=== PATIENT | female | born 1970 | race Caucasian/White ===

== ENCOUNTER 2018-12-02 05:28 | Day surgery (SDC) | payer BC, OTHER ==
[2018-11-29 11:26] LABS: BASOPHILS # (AUTO) 0.08 x10^3/uL (0-0.1); BASOPHILS % (AUTO) 1 % (0-1); EOSINOPHILS # (AUTO) 0.44 x10^3/uL (0-0.4); EOSINOPHILS % (AUTO) 7 % (1-7); LYMPHOCYTES # (AUTO) 2.07 x10^3/uL (1-3.4); LYMPHOCYTES % (AUTO) 31 % (22-44); MD NO; MEAN CORPUSCULAR HEMOGLOBIN 31.2 pg (27.0-34.8); MEAN CORPUSCULAR HGB CONC 33.9 g/dL (32.4-35.8); MEAN CORPUSCULAR VOLUME 91.9 fL (80-100); MEAN PLATELET VOLUME 7.4 fL (7.4-10.4); MONOCYTES # (AUTO) 0.64 x10^3/uL (0.2-0.8); MONOCYTES % (AUTO) 10 % (2-9); NEUTROPHILS # (AUTO) 3.43 x10^3/uL (1.8-6.8); NEUTROPHILS % (AUTO) 52 % (42-75); PLATELET COUNT 374 x10^3/uL (130-400); RED BLOOD COUNT 4.73 x10^6/uL (3.82-5.3); RED CELL DISTRIBUTION WIDTH 12.6 % (9.6-15.2)
[2018-11-29 11:31] LABS: ALBUMIN 3.5 g/dL (3.4-5.0); ANION GAP 6 mmol/L (5-15); CALCIUM 8.7 mg/dL (8.5-10.1); CHLORIDE 106 mmol/L (98-107); CREATININE 0.75 mg/dL (0.55-1.02)
[2018-11-29 11:47] LABS: INTERNATIONAL NORMALIZED RATIO 0.94 (0.93-1.1)
[2018-11-29 11:48] LABS: ALANINE AMINOTRANSFERASE 60 U/L (12-78); ALKALINE PHOSPHATASE 119 U/L (45-117); BILIRUBIN,TOTAL 0.4 mg/dL (0.2-1.0); TOTAL PROTEIN 8.1 g/dL (6.4-8.2)
[~2018-12-02] VITALS: Ht 162.6 cm; Wt 85.9 kg
[~2018-12-02 05:28] MED LIST: ASPI81TA45 PO; ATIVAN PO; HYDR25TA6 PO; OMEP-110 PO; PERCOCET PO
[2018-12-02 06:18] VITALS: BP 147/97
[2018-12-02] MEDS ORDERED: LACTATED RINGERS 1,000 ML IV SCH (06:18)
[2018-12-02] MEDS ORDERED: LORAZEPAM PO (06:18)
[2018-12-02] MEDS ORDERED: INDOCYANINE GREEN 25 MG VIAL ONE (07:03)
[2018-12-02] MEDS ORDERED: BUPIVACAINE/PF 0.25% ONE (07:03)
[2018-12-02] MEDS ORDERED: HEPARIN 5,000 UNITS/ML, 1ML ONE (07:03)
[2018-12-02] MEDS ORDERED: EPINEPHRINE 1 MG/ML, 1ML ONE (07:03)
[2018-12-02] MEDS ORDERED: FENTANYL PF 250 MCG/5ML ONE (07:05)
[2018-12-02] MEDS ORDERED: MIDAZOLAM 1 MG/ML, 2ML ONE (07:05)
[2018-12-02] MEDS ORDERED: OXYcodone 5 MG/5 ML ORAL.SOL UDC PO PRN (07:30)
[2018-12-02] MEDS ORDERED: ONDANSETRON 2MG/ML, 2ML IV PRN (07:30)
[2018-12-02] MEDS ORDERED: SCOPOLAMINE PATCH, 1.5MG PATCH.TD72 TD ONE (07:30)
[2018-12-02] MEDS ORDERED: DIAZEPAM 5 MG TABLET PO ONE (07:30)
[2018-12-02] MEDS ORDERED: hydrALAzine 20 MG/ML, 1ML IV PRN (07:30)
[2018-12-02] MEDS ORDERED: ONDANSETRON ODT 8 MG PO ONE (07:30)
[2018-12-02] MEDS ORDERED: MIDAZOLAM 1 MG/ML, 2ML IV PRN (07:30)
[2018-12-02] MEDS ORDERED: ALBUTEROL/IPRATROPIUM 2.5MG/0.5MG, 3 ML NPPB PRN (07:30)
[2018-12-02] MEDS ORDERED: GABAPENTIN 300 MG CAPSULE PO ONE (07:30)
[2018-12-02] MEDS ORDERED: FENTANYL PF 100 MCG/2ML IV PRN (07:30)
[2018-12-02] MEDS ORDERED: ACETAMINOPHEN 500 MG TABLET PO ONE (07:30)
[2018-12-02] MEDS ORDERED: HYDROmorphone 2 MG/ML, 1ML IVPush PRN (07:30)
[2018-12-02] MEDS ORDERED: KETOROLAC 30 MG/1 ML ONE (07:45)
[2018-12-02] MEDS ORDERED: LIDOCAINE 2% 100MG/5ML SYRINGE ONE (07:45)
[2018-12-02] MEDS ORDERED: PHENYLEPHRINE 10 MG/ML ONE (07:45)
[2018-12-02] MEDS ORDERED: CEFAZOLIN 1,000 MG ONE (09:34)
[2018-12-02] MEDS ORDERED: GLYCOPYRROLATE 0.2MG/1ML, 5ML ONE (09:34)
[2018-12-02] MEDS ORDERED: ONDANSETRON 2MG/ML, 2ML ONE (09:34)
[2018-12-02] MEDS ORDERED: NEOSTIGMINE 1 MG/ML, 10ML ONE (09:34)
[2018-12-02] MEDS ORDERED: ROCURONIUM 10MG/ML,5ML ONE (09:34)
[2018-12-02] MEDS ORDERED: DEXAMETHASONE 4 MG/ML, 1ML ONE (09:34)
[2018-12-02] MEDS ORDERED: PROPOFOL 10 MG/ML, 20ML ONE (09:34)
[2018-12-02] MEDS ORDERED: OXYcodone 5 MG/5 ML ORAL.SOL UDC ONE (10:56)
== END 2018-12-02 15:45 | disposition home or self-care (01) ==
LOC: OUT 05:28
PROVIDERS: ATTEND Specialist
DX: D27.1 Benign neoplasm of left ovary (principal); D28.2 Benign neoplasm of uterine tubes and ligaments; N85.8 Other specified noninflammatory disorders of uterus; I10 Essential (primary) hypertension; E78.00 Pure hypercholesterolemia, unspecified; K21.9 Gastro-esophageal reflux disease without esophagitis; F17.210 Nicotine dependence, cigarettes, uncomplicated; Z98.890 Other specified postprocedural states; Z90.710 Acquired absence of both cervix and uterus
CPT/HCPCS: 36415; 58661; 71046; 74018; 80053; 85025; 85610; 85730; 86304; 86850; 86900; 86923; 88305; 93005; J0171; J0690; J1100; J1885; J2250; J2370; J2704; J2710; J3010; J3490; J7120; Q0162; J1644; J2405

== ENCOUNTER 2018-12-09 23:45 | Emergency (ER) | payer OTHER ==
[~2018-12-09] VITALS: Ht 162.6 cm; Wt 88.8 kg
[~2018-12-09 23:45] MED LIST changes: +LORAZEPAM PO
--- NOTE | 2018-12-10 00:05 | NUR ---
FIRST CONTACT WITH PT. PT C/O BILATERAL LOWER ABD HEAVINESS/PAINFUL URINATION SINCE SUNDAY. PT HAD HYSTERECTOMY LAST SUNDAY. PT DENIES V/D AT THIS TIME. BP/SPO2 MONITORS IN PLACE. CALL LIGHT WITHIN REACH. PT'S AT BEDSIDE. EDMD AT BEDSIDE TO ASSESS AT THIS TIME.
--- NOTE | 2018-12-10 00:16 | NUR ---
PT AMB TO BR AND BACK TO ROOM WITH STEADY GAIT FOR UA.
[2018-12-10] MEDS ORDERED: MORPHINE SULFATE 4 MG/ML, 1ML ONE ×2 (00:29→01:24)
[2018-12-10] MEDS ORDERED: ONDANSETRON 2MG/ML, 2ML ONE (00:29)
[2018-12-10] MEDS ORDERED: ONDANSETRON 2MG/ML, 2ML IVPush ONE (00:30)
[2018-12-10 00:36] LABS: BASOPHILS # (AUTO) 0.07 x10^3/uL (0-0.1); BASOPHILS % (AUTO) 1 % (0-1); EOSINOPHILS # (AUTO) 0.53 x10^3/uL (0-0.4); EOSINOPHILS % (AUTO) 4 % (1-7); LYMPHOCYTES # (AUTO) 2.65 x10^3/uL (1-3.4); LYMPHOCYTES % (AUTO) 21 % (22-44); MD NO; MEAN CORPUSCULAR HEMOGLOBIN 31.1 pg (27.0-34.8); MEAN CORPUSCULAR HGB CONC 34.3 g/dL (32.4-35.8); MEAN CORPUSCULAR VOLUME 90.8 fL (80-100); MEAN PLATELET VOLUME 7.3 fL (7.4-10.4); MONOCYTES # (AUTO) 1.09 x10^3/uL (0.2-0.8); MONOCYTES % (AUTO) 8 % (2-9); NEUTROPHILS # (AUTO) 8.55 x10^3/uL (1.8-6.8); NEUTROPHILS % (AUTO) 66 % (42-75); PLATELET COUNT 380 x10^3/uL (130-400); RED BLOOD COUNT 4.33 x10^6/uL (3.82-5.3); RED CELL DISTRIBUTION WIDTH 12.3 % (9.6-15.2)
[2018-12-10 00:43] LABS: ANION GAP 5 mmol/L (5-15); CHLORIDE 109 mmol/L (98-107); CREATININE 0.69 mg/dL (0.55-1.02)
[2018-12-10 00:44] LABS: MICROSCOPIC NOT IND
[2018-12-10 00:48] LABS: CULTURE INDICATED? NO
[2018-12-10] MEDS: MORPHINE SULFATE 4 MG/ML, 1ML IVPush PRN ×2 (00:51→01:28)
--- NOTE | 2018-12-10 01:12 | NUR ---
pt's pain level is still 9/10 at this time. pt requesting pain med at this time.
--- NOTE | 2018-12-10 01:31 | NUR ---
pt medciated per emar for pain. pt tolerated well. pt's aox4. resps even and unlabored.
[2018-12-10 01:56] VITALS: BP 108/57
[2018-12-10] MEDS ORDERED: SULFAMETH./TRIMETHOPRIM DS 800MG/160MG TABLET PO ONE (02:00)
[2018-12-10] MEDS ORDERED: CEPHALEXIN 500 MG CAPSULE PO ONE (02:00)
[2018-12-10] MEDS ORDERED: SULFAMETH./TRIMETHOPRIM DS 800MG/160MG TABLET ONE (02:10)
[2018-12-10] MEDS ORDERED: CEPHALEXIN 500 MG CAPSULE ONE (02:10)
[2018-12-10] MEDS ORDERED: OMNIPAQUE 350 MG/ML, 100ML BOTTLE ONE (05:09)
== END 2018-12-10 02:37 | disposition home or self-care (01) ==
LOC: ED 23:59
DX: L03.311 Cellulitis of abdominal wall (principal); R10.32 Left lower quadrant pain; Z90.710 Acquired absence of both cervix and uterus
CPT/HCPCS: 36415; 74177; 80048; 81003; 82040; 85025; 96374; 96375; 96376; 99284; J2405; Q9967

== ENCOUNTER 2019-03-03 12:39 | Emergency (ER) | payer OTHER ==
[~2019-03-03] VITALS: Ht 162.6 cm; Wt 86.2 kg
[2019-03-03 13:31] LABS: BASOPHILS # (AUTO) 0.06 x10^3/uL (0-0.1); BASOPHILS % (AUTO) 1 % (0-1); EOSINOPHILS # (AUTO) 0.35 x10^3/uL (0-0.4); EOSINOPHILS % (AUTO) 4 % (1-7); LYMPHOCYTES # (AUTO) 2.48 x10^3/uL (1-3.4); LYMPHOCYTES % (AUTO) 29 % (22-44); MD NO; MEAN CORPUSCULAR HEMOGLOBIN 30.6 pg (27.0-34.8); MEAN CORPUSCULAR HGB CONC 33.8 g/dL (32.4-35.8); MEAN CORPUSCULAR VOLUME 90.6 fL (80-100); MEAN PLATELET VOLUME 8.1 fL (7.4-10.4); MONOCYTES # (AUTO) 0.87 x10^3/uL (0.2-0.8); MONOCYTES % (AUTO) 10 % (2-9); NEUTROPHILS # (AUTO) 4.83 x10^3/uL (1.8-6.8); NEUTROPHILS % (AUTO) 56 % (42-75); PLATELET COUNT 313 x10^3/uL (130-400); RED BLOOD COUNT 5.07 x10^6/uL (3.82-5.3); RED CELL DISTRIBUTION WIDTH 12.6 % (9.6-15.2)
[2019-03-03 13:41] LABS: ALANINE AMINOTRANSFERASE 77 U/L (12-78); ALBUMIN 3.5 g/dL (3.4-5.0); ANION GAP 8 mmol/L (5-15); CALCIUM 9.1 mg/dL (8.5-10.1); CHLORIDE 105 mmol/L (98-107); CREATININE 0.81 mg/dL (0.55-1.02)
[2019-03-03 13:44] LABS: ALKALINE PHOSPHATASE 181 U/L (45-117); BILIRUBIN,TOTAL 0.5 mg/dL (0.2-1.0); TOTAL PROTEIN 8.1 g/dL (6.4-8.2)
--- NOTE | 2019-03-03 14:50 | NUR ---
URINE SPECIMEN CUP GIVEN
--- NOTE | 2019-03-03 14:52 | NUR ---
ACCOMPANIED BY SO TO THE RESTROOM.
[2019-03-03] MEDS ORDERED: SODIUM CHLORIDE FLUSH 10ML SYR IVF ONE (15:00)
[2019-03-03] MEDS ORDERED: MORPHINE SULFATE 4 MG/ML, 1ML IVPush PRN (15:00)
[2019-03-03] MEDS ORDERED: ONDANSETRON 2MG/ML, 2ML IVPush ONE (15:00)
--- NOTE | 2019-03-03 15:10 | NUR ---
REPORT RECEIVED, CARE ASSUMED. URINE SENT TO LAB.
[2019-03-03] MEDS ORDERED: MORPHINE SULFATE 4 MG/ML, 1ML ONE (15:15)
[2019-03-03] MEDS ORDERED: ONDANSETRON 2MG/ML, 2ML ONE (15:15)
--- NOTE | 2019-03-03 15:20 | NUR ---
IV PLACED FOR CT, PT MEDICATED FOR PAIN. PT/SO DENY NEEDS AT THIS TIME. PT TRANSPORTED TO CT.
[2019-03-03] MEDS ORDERED: OMNIPAQUE 350 MG/ML, 100ML BOTTLE ONE (15:48)
[2019-03-03 15:59] LABS: MICROSCOPIC AUTO
[2019-03-03 16:00] LABS: CULTURE INDICATED? YES
--- NOTE | 2019-03-03 16:05 | NUR ---
PT STATES IMPROVED PAIN POST MEDS. UNABLE TO GIVE PAIN SCALE, STATES "I FEEL BETTER." PT AWARE AWAITING RESULTS.
--- NOTE | 2019-03-03 16:16 | NUR ---
CHART UP FOR RECHECK.
[2019-03-03] MEDS ORDERED: CEFTRIAXONE PMX 1GM/50ML 50 ML IV ONE (16:30)
[2019-03-03] MEDS ORDERED: CEFTRIAXONE PMX 1GM/50ML 50 ML ONE (16:37)
--- NOTE | 2019-03-03 17:23 | NUR ---
ROCEPHIN INFUSION COMPLETE. PT CLEARED FOR DISCHARGE. PT HAS TAKEN 8 OZ JUICE WITHOUT EMESIS. AMBULATING WELL UPON DEPARTURE.
[2019-03-03 17:24] VITALS: BP 120/69
== END 2019-03-03 17:27 | disposition home or self-care (01) ==
LOC: ED 17:08
DX: K57.32 Diverticulitis of large intestine without perforation or abscess without bleeding (principal); Z90.710 Acquired absence of both cervix and uterus; I10 Essential (primary) hypertension; E11.9 Type 2 diabetes mellitus without complications
CPT/HCPCS: 36415; 74021; 74177; 80053; 81001; 83690; 85025; 87086; 87147; 96365; 96375; 99284; J0696; J2405; Q9967

== ENCOUNTER 2019-03-08 16:26 | Emergency (ER) | payer OTHER ==
[~2019-03-08] VITALS: Ht 162.6 cm; Wt 89.2 kg
[2019-03-08 17:41] LABS: BASOPHILS # (AUTO) 0.04 x10^3/uL (0-0.1); BASOPHILS % (AUTO) 1 % (0-1); EOSINOPHILS # (AUTO) 0.41 x10^3/uL (0-0.4); EOSINOPHILS % (AUTO) 5 % (1-7); LYMPHOCYTES # (AUTO) 2.41 x10^3/uL (1-3.4); LYMPHOCYTES % (AUTO) 30 % (22-44); MD NO; MEAN CORPUSCULAR HEMOGLOBIN 30.7 pg (27.0-34.8); MEAN CORPUSCULAR HGB CONC 32.7 g/dL (32.4-35.8); MEAN CORPUSCULAR VOLUME 93.9 fL (80-100); MEAN PLATELET VOLUME 7.9 fL (7.4-10.4); MONOCYTES # (AUTO) 0.59 x10^3/uL (0.2-0.8); MONOCYTES % (AUTO) 7 % (2-9); NEUTROPHILS # (AUTO) 4.65 x10^3/uL (1.8-6.8); NEUTROPHILS % (AUTO) 58 % (42-75); PLATELET COUNT 321 x10^3/uL (130-400); RED BLOOD COUNT 5.08 x10^6/uL (3.82-5.3); RED CELL DISTRIBUTION WIDTH 12.8 % (9.6-15.2)
[2019-03-08 17:53] LABS: ALANINE AMINOTRANSFERASE 124 U/L (12-78); ALBUMIN 3.3 g/dL (3.4-5.0); ANION GAP 7 mmol/L (5-15); CALCIUM 8.1 mg/dL (8.5-10.1); CHLORIDE 105 mmol/L (98-107); CREATININE 1.25 mg/dL (0.55-1.02)
[2019-03-08] MEDS ORDERED: METOCLOPRAMIDE 5 MG/ML, 2ML ONE (17:54)
[2019-03-08 17:58] LABS: ALKALINE PHOSPHATASE 176 U/L (45-117); BILIRUBIN,TOTAL 0.3 mg/dL (0.2-1.0); TOTAL PROTEIN 7.7 g/dL (6.4-8.2)
[2019-03-08] MEDS ORDERED: METOCLOPRAMIDE 5 MG/ML, 2ML IVPush ONE (18:00)
[2019-03-08] MEDS ORDERED: SODIUM CHLORIDE FLUSH 10ML SYR IVF ONE (18:00)
[2019-03-08] MEDS ORDERED: ONDANSETRON 2MG/ML, 2ML IVPush ONE (18:00)
[2019-03-08] MEDS ORDERED: SODIUM CHLORIDE 0.9% 1,000ML IVBOLUS ONE (18:00)
--- NOTE | 2019-03-08 18:02 | NUR ---
IV started, NS hung and reglan admin. SO at bedside. VSS.
[2019-03-08 19:02] VITALS: BP 138/65
== END 2019-03-08 19:10 | disposition home or self-care (01) ==
LOC: ED 17:25
DX: K76.0 Fatty (change of) liver, not elsewhere classified (principal); R11.10 Vomiting, unspecified; E86.0 Dehydration; I10 Essential (primary) hypertension; E11.9 Type 2 diabetes mellitus without complications
CPT/HCPCS: 36415; 80053; 83690; 84702; 85025; 96374; 99283; J2765; J7030

== ENCOUNTER 2021-01-08 18:48 | Emergency (ER) | payer OTHER ==
[~2021-01-08] VITALS: Ht 162.6 cm; Wt 84.8 kg
[2021-01-08 18:51] VITALS: BP 147/83
--- NOTE | 2021-01-08 19:21 | NUR ---
THIS IS A 50 YR OLD FEMALE WITH MEDICAL HX OF DM AND HTM. PT CC TODAY IS RIGHT THIGH PAIN WHICH IS DESCRIBED DEEP AND STABBING. PT DENIES ANY TRAUMA TO THE EXTREMITY. PT HAS FULL RANGE OF MOTION IN EXTREMITY WITH ONLY LIFTING OF THE LEG BEING THE ONLY AGGREVATING FACTOR. PT IN ROOM ON NIBP, AND O2 MONITORING IN PLACE. PROVIDER HAS ASSESSED AND ORDERS IN PLACE. PT OFF TO XRAY AT THIS TIME.
[2021-01-08] MEDS ORDERED: KETOROLAC 30 MG/1 ML IM ONE (19:30)
[2021-01-08] MEDS ORDERED: KETOROLAC 30 MG/1 ML ONE (19:56)
== END 2021-01-08 21:07 | disposition home or self-care (01) ==
LOC: ED 19:09
DX: S76.911A Strain of unspecified muscles, fascia and tendons at thigh level, right thigh, initial encounter (principal); I10 Essential (primary) hypertension; E11.9 Type 2 diabetes mellitus without complications; Z90.49 Acquired absence of other specified parts of digestive tract; Z90.710 Acquired absence of both cervix and uterus; X58.XXXA Exposure to other specified factors, initial encounter; Y93.89 Activity, other specified; Y92.89 Other specified places as the place of occurrence of the external cause; Y99.8 Other external cause status
CPT/HCPCS: 73552; 93971; 96372; 99284; J1885

== ENCOUNTER 2021-07-02 17:05 | Emergency (ER) | payer OTHER ==
[~2021-07-02] VITALS: Ht 162.6 cm; Wt 85.1 kg
[2021-07-02 18:06] LABS: BASOPHILS % (AUTO) 2 % (0-1); EOSINOPHILS % (AUTO) 7 % (1-7); LYMPHOCYTES % (AUTO) 35 % (22-44); MEAN CORPUSCULAR HEMOGLOBIN 30.4 pg (27.0-34.8); MEAN CORPUSCULAR HGB CONC 33.2 g/dL (32.4-35.8); MONOCYTES % (AUTO) 12 % (2-9); NEUTROPHILS % (AUTO) 45 % (42-75); PLATELET COUNT 318 x10^3/uL (130-400); RED BLOOD COUNT 4.43 x10^6/uL (3.82-5.3); RED CELL DISTRIBUTION WIDTH 12.3 % (9.6-15.2)
[2021-07-02 18:16] LABS: ALANINE AMINOTRANSFERASE 70 U/L (12-78); ALBUMIN 3.4 g/dL (3.4-5.0); ANION GAP 4 mmol/L (5-15); CHLORIDE 108 mmol/L (98-107); CREATININE 0.62 mg/dL (0.55-1.02)
[2021-07-02 18:19] LABS: ALKALINE PHOSPHATASE 171 U/L (45-117); BILIRUBIN,TOTAL 0.4 mg/dL (0.2-1.0)
[2021-07-02 20:37] VITALS: BP 133/79
== END 2021-07-02 20:39 | disposition home or self-care (01) ==
LOC: ED 20:23
DX: K62.5 Hemorrhage of anus and rectum (principal); I10 Essential (primary) hypertension; E11.9 Type 2 diabetes mellitus without complications; Z90.89 Acquired absence of other organs; Z90.49 Acquired absence of other specified parts of digestive tract
CPT/HCPCS: 36415; 80053; 83690; 85025; 99283